=== PATIENT | female | born 1945 | race Caucasian/White ===

== ENCOUNTER → 2016-10-22 | Outpatient (CLI) | payer OTHER ==
--- NOTE | ~2016-10-22 | CR63 ---
[facility] A Service of [facility] & [facility] RADIOLOGY TEXT RESULTS PATIENT: JOSE GONZALES LOCATION: [facility] : 47 UNIT #: [id number] AGE: [address]: TOM RAHMAN APRN SEX: F ORDER DR: [id number] [facility] [address] [place], [place] [address] [id number] O MR#: [id number] Acc #: [id number] NAME: JOSE GONZALES : 1945 SEX: F STUDY DATE/TIME: 10/22/2016 17:26 UNIT: [facility] ROOM: STUDY DESCRIPTION: CR Chest 2 View Attending Physician: Tom Rahman Referring Physician: Rubin Rahman M.D. Ordering Physician: Rubin Rahman M.D. Primary Care Physician: Surinder Duarte M.D. MEDICAL IMAGING REPORT This report is preliminary unless electronic signature is present EXAM Chest PA and lateral 10/22/2016 HISTORY Dry cough for 3 months and upper back pain. FINDINGS PA and lateral examination of the chest upright shows a good expansion of the parenchyma with a normal distribution of the pulmonary vascularity. There is no indication of congestion, effusion, infiltrate, tumor, or nodular density. The pleural reflections and diaphragmatic contours are normal. The cardiac silhouette and mediastinal anatomy is within normal limits. IMPRESSION Normal chest. Dictated by... Lalito Pineda M.D. THIS IS AN ELECTRONICALLY VERIFIED REPORT Lalito Pineda M.D. at 10/23/2016 7:30 AM BABAR/kamaljit TD: 10/22/2016 22:52 JOB #: [id number] MEDICAL IMAGING REPORT Page 1 of 1 COPY
== END | disposition home or self-care (01) ==
LOC: CRAD 16:48
DX: R05 Cough (principal)
CPT/HCPCS: 71020

== ENCOUNTER → 2016-11-06 | Outpatient (CLI) | payer OTHER ==
--- NOTE | ~2016-11-06 | US80 ---
[facility] A Service of [facility] & [facility] RADIOLOGY TEXT RESULTS PATIENT: JOSE GONZALES LOCATION: [facility] : 47 UNIT #: [id number] AGE: [address]: ALEC RAHMAN APRN SEX: F ORDER DR: [id number] [facility] [address] [place], [place] [address] [id number] O MR#: [id number] Acc #: [id number] NAME: JOSE GONZALES : 1945 SEX: F STUDY DATE/TIME: 11/06/2016 12:32 UNIT: [facility] ROOM: STUDY DESCRIPTION: US Kidney Unilateral Complete Attending Physician: Rubin Rahman M.D. Referring Physician: Rubin Rahman M.D. Ordering Physician: Rubin Rahman M.D. Primary Care Physician: Surinder Duarte M.D. MEDICAL IMAGING REPORT This report is preliminary unless electronic signature is present EXAM Left renal ultrasound HISTORY Left flank pain for 3 months. FINDINGS Ultrasound examination of the left kidney demonstrates no hydronephrosis, renal mass, focal parenchymal atrophy or perinephric fluid collection. Incidental mildly prominent extrarenal pelvis. The left kidney measures approximately 9.5 cm in length. Survey of the urinary bladder is normal. IMPRESSION Normal ultrasound examination of the left kidney. Incidental mildly prominent left extrarenal pelvis. No left renal mass or focal atrophy or perinephric fluid. Dictated by... Marco Pradhan M.D. THIS IS AN ELECTRONICALLY VERIFIED REPORT Marco Pradhan M.D. at 11/06/2016 11:14 PM [place] TD: 11/06/2016 17:24 JOB #: [id number] MEDICAL IMAGING REPORT Page 1 of 1 COPY
== END | disposition home or self-care (01) ==
LOC: CGUS 12:06
DX: N23 Unspecified renal colic (principal)
CPT/HCPCS: 76770